=== PATIENT | male | born 1960 | race African-American/Black ===

== ENCOUNTER 2016-03-24 19:39 | Emergency (ER) | payer OTHER ==
[~2016-03-24] VITALS: Ht 170.2 cm; Wt 68.0 kg
[2016-03-24] MEDS ORDERED: ONDANSETRON ODT 4 MG TAB PO ONE (21:15)
[2016-03-24] MEDS ORDERED: HYDROmorphone HCL 2 MG/ML VL IM ONE (21:15)
[2016-03-24] MEDS ORDERED: KETOROLAC TROMETH 60MG/2ML VIAL IM ONE (21:15)
[2016-03-24 21:41] LABS: Basophils # (auto) 0 uL; Basophils % (auto) 0.9 % (0.0-2.0); Eosinophils # (auto) 0.1 uL; Eosinophils % (auto) 1.4 % (0.0-7.0); Hematocrit 40.2 % (41.0-53.0); Hemoglobin 12.4 g/dL (13.5-17.5); Lymphocytes # (auto) 2.2 uL; Lymphocytes % (auto) 45.1 % (10.0-50.0); Mean Corpuscular Hemoglobin 27.4 pg (28.0-32.0); Mean Corpuscular Volume 88.6 fL (80.0-100.0); Mean Platelet Volume 6.9 fL (7.4-10.4); Monocytes # (auto) 0.3 uL; Monocytes % (auto) 6.1 % (0.0-12.0); Neutrophils # (auto) 2.3 uL; Neutrophils % (auto) 46.5 % (37.0-80.0); Platelet Count (auto) 285 10^3/uL (140-450)
[2016-03-24 21:50] VITALS: BP 140/107
[2016-03-24 21:57] LABS: Urine RBC None Seen /hpf (0 - 3)
[2016-03-24] MEDS ORDERED: HYDROcodone-ACET 10/325MG TAB PO ONE (22:00)
[2016-03-24] MEDS ORDERED: IBUPROFEN 600 MG TAB PO ONE (22:00)
[2016-03-24 22:02] LABS: Albumin 3.6 g/dL (3.4-5.0); BUN/Creatinine Ratio 12.6; Calcium 8.6 mg/dL (8.5-10.1); Magnesium 2.1 mg/dL (1.6-2.6)
[2016-03-24 22:04] LABS: Bilirubin, Total 0.4 mg/dL (0.2-1.0)
[2016-03-24 22:11] LABS: Potassium 2.9 mmol/L (3.5-5.1)
[2016-03-24] MEDS ORDERED: POTASSIUM CHL 20 Meq TABLET PO ONE ×2 (22:19→22:30)
[2016-03-24 23:19] LABS: Urine Bilirubin Negative (Negative); Urine Blood Negative /uL (Negative); Urine Color Yellow (Yellow); Urine Glucose Normal (Normal); Urine Ketone Negative (Negative); Urine Nitrite Negative (Negative); Urine Urobilinogen Normal (Negative); Urine pH 5.5 (5.0-8.0)
== END 2016-03-24 22:32 | disposition home or self-care (01) ==
LOC: ER 19:44
DX: M54.12 Radiculopathy, cervical region (principal); I10 Essential (primary) hypertension; Z91.018 Allergy to other foods
CPT/HCPCS: 36415; 71010; 73030; 80053; 81001; 83735; 84484; 85025; 93005

== ENCOUNTER 2016-03-31 17:08 | Emergency (ER) | payer OTHER ==
[~2016-03-31] VITALS: Ht 170.2 cm; Wt 68.0 kg
[2016-03-31 17:25] VITALS: BP 165/117
== END 2016-03-31 23:49 | disposition left against medical advice (07) ==
LOC: ER 17:12
DX: M79.602 Pain in left arm (principal); Z53.21 Procedure and treatment not carried out due to patient leaving prior to being seen by health care provider

== ENCOUNTER 2016-04-02 14:15 | Emergency (ER) | payer OTHER ==
[~2016-04-02] VITALS: Ht 170.2 cm; Wt 68.0 kg
[2016-04-02 14:44] VITALS: BP 157/115
== END 2016-04-02 16:40 | disposition home or self-care (01) ==
LOC: ER 14:35
DX: M54.12 Radiculopathy, cervical region (principal); M50.30 Other cervical disc degeneration, unspecified cervical region; G89.29 Other chronic pain; M54.9 Dorsalgia, unspecified; M19.90 Unspecified osteoarthritis, unspecified site; Z91.018 Allergy to other foods
CPT/HCPCS: 93005